=== PATIENT | female | born 1945 | race Caucasian/White ===

== ENCOUNTER 2024-01-28 06:27 | Outpatient (RCR) | payer MEDICARE, OTHER, SELFPAY | END 2024-01-28 23:59 | disposition home or self-care (01) | LOC: ROT 06:27 | PROVIDERS: ATTENDING PHYSICIAN Psychiatry & Neurology Neurology; FAMILY PHYSICIAN Internal Medicine | DX: G31.09 Other frontotemporal neurocognitive disorder (principal); Z73.6 Limitation of activities due to disability | CPT/HCPCS: 97167; 97535 ==